=== PATIENT | female | born 1930 | race Caucasian/White ===

== ENCOUNTER → 2016-12-19 | Outpatient (CLI) | payer MEDICARE, BC ==
--- NOTE | ~2016-12-19 | MY11 ---
[facility] A Service of [facility] & [facility] RADIOLOGY TEXT RESULTS PATIENT: HEATHER GARCIA LOCATION: [facility] : 32 UNIT #: [id number] AGE: [address]: Suleiman Rudolph MD SEX: F ORDER DR: [id number] [address] [address] [id number] O MR#: [id number] Acc #: [id number] NAME: HEATHER GARCIA : 1930 SEX: F STUDY DATE/TIME: 12/19/2016 15:54 UNIT: [facility] ROOM: STUDY DESCRIPTION: MY Mammogram Screening Dig Baldomero Attending Physician: Suleiman Rudolph III, M.D. Referring Physician: Suleiman Rudolph III, M.D. Ordering Physician: Suleiman Rudolph III, M.D. Primary Care Physician: Suleiman Rudolph III, M.D. MEDICAL IMAGING REPORT This report is preliminary unless electronic signature is present. EXAM Bilateral digital screening mammogram with CAD. COMPARISON STUDIES 12/18/2015, 04/02/2015, 09/01/2014, 08/22/2014, 06/20/2013, 06/08/2012, 05/20/2011, 05/07/2010, 04/29/2010, 04/26/2009, 04/05/2008, 02/04/2007, 02/02/2006, 01/29/2005, 01/17/2004. HISTORY Breast cancer screening. 86-year-old asymptomatic female. No personal or family history of breast cancer. FINDINGS Breasts tissues are extremely dense, which may lower the sensitivity of mammography. Deodorant artifact is noted in the superoposterior third of the right breast, only seen on the MLO view overlapping the pectoralis muscle. No suspicious findings are seen in either breast. IMPRESSION No mammographic evidence of malignancy. Annual screening mammography is recommended for as long as the patient is in good health ([employer]). Patients over the age of 40 are entered into a reminder system with target due date for the next mammogram. A result letter will also be sent to the patient. BIRADS: 1 Negative STS. [facility] A Service of [facility] & [facility] RADIOLOGY TEXT RESULTS PATIENT: HEATHER GARCIA LOCATION: [facility] : 32 UNIT #: [id number] AGE: [address]: Suleiman Rudolph MD SEX: F ORDER DR: Dictated by... Abel Donahue M.D. THIS IS AN ELECTRONICALLY VERIFIED REPORT Abel Donahue M.D. at 12/21/2016 7:07 PM Tom TD: 12/20/2016 11:37 JOB #: [id number] MEDICAL IMAGING REPORT
== END | disposition home or self-care (01) ==
LOC: SMAM 15:17
DX: Z12.31 Encounter for screening mammogram for malignant neoplasm of breast (principal)
CPT/HCPCS: G0202